=== PATIENT | female | born 1965 | race Two or more races ===

== ENCOUNTER 2023-05-28 11:42 | Inpatient (IN) | payer OTHER ==
[~2023-05-28] VITALS: Ht 154.9 cm; Wt 98.0 kg
[2023-05-28] MEDS ORDERED: PANTOPRAZOLE SO40 MG (12:09)
[2023-05-28] MEDS ORDERED: SYNTHROID50 MCG (12:09)
[2023-05-28] MEDS ORDERED: GABAPENTIN300 M2 (12:10)
[2023-05-28] MEDS ORDERED: AGRYLIN0.5 MG (12:10)
[2023-05-28] MEDS ORDERED: ST. JOSEPH ASPI81 M2 (12:10)
[2023-05-28] MEDS ORDERED: FAMOTIDINE40 MG (12:10)
[2023-05-28] MEDS ORDERED: FENOFIBRATE160 MG (12:10)
[2023-05-28] MEDS ORDERED: METOPROLOL SUCC25 MG (12:10)
[2023-05-28] MEDS ORDERED: ATORVASTATIN CA20 MG (12:10)
[2023-05-28 13:06] LABS: HEMATOCRIT 36.3 % (36.0-45.00); HEMOGLOBIN 12.3 g/dL (12.0-15.00); MEAN CELL VOLUME 111.9 fL (80.00-100.00); MEAN CORPUSCULAR HEMOGLOBIN 37.8 pg (27.00-32.0); MEAN CORPUSCULAR HGB CONC 33.7 g/dl (32.0-36.0); PLATELET COUNT 468 K/uL (150-450); RED BLOOD COUNT 3.25 M/uL (4.00-6.00); RED CELL DISTRIBUTION WIDTH 15.1 % (11.5-14.5)
[2023-05-28 13:20] LABS: INR 1.09; PARTIAL THROMBOPLASTIN TIME 33.1 SECONDS (22.0-34.0); PROTHROMBIN TIME 11.4 SECONDS (9.0-11.5)
[2023-05-28 13:24] LABS: ALBUMIN 4.3 gm/dL (3.4-5.0); BILIRUBIN TOTAL 0.41 mg/dL (0.3-1.2); CALCIUM 9.9 mg/dL (8.5-10.1); CREATININE SERUM 0.87 mg/dL (0.55-1.02); GFR 67.6; GLOBULINA 3.9 G/DL (2.4-3.5); POTASSIUM 4.43 mEq/L (3.5-5.1); TOTAL PROTEIN 8.2 gm/dL (6.4-8.2)
[2023-05-30] MEDS ORDERED: LIPITOR20 MG PO (18:03)
[2023-05-30] MEDS ORDERED: ELIQUIS5 MG PO (18:03)
[2023-05-30] MEDS ORDERED: FENOFIBRATE160 MG PO (18:04)
[2023-05-30] MEDS ORDERED: METOPROLOL SUCC25 MG PO (18:05)
[2023-05-30] MEDS ORDERED: GABAPENTIN300 M2 PO (18:06)
[2023-05-30] MEDS ORDERED: PANTOPRAZOLE SO40 MG PO (18:07)
[2023-05-30] MEDS ORDERED: FAMOTIDINE40 MG PO (18:07)
[2023-05-30] MEDS ORDERED: LEVOTHYROXINE50 MCG PO (18:08)
[2023-05-30] MEDS ORDERED: HYDROXYUREA500 MG PO (18:09)
== END 2023-05-30 19:02 | disposition home or self-care (01) | DRG 294 ==
LOC: MEDJ 11:42 → SEC-K 11:42 → MEDI 12:05 → MEDJ 13:54
PROVIDERS: Radiology Vascular & Interventional Radiology; ADMIT Internal Medicine Hematology & Oncology; ATTEND Internal Medicine Hematology & Oncology
PROC: BW30YZZ Magnetic Resonance Imaging (MRI) of Abdomen using Other Contrast (ICD-10-PCS; 2023-05-28)
PROC: B54DZZZ Ultrasonography of Bilateral Lower Extremity Veins (ICD-10-PCS; 2023-05-28)
PROC: 06H03DZ Insertion of Intraluminal Device into Inferior Vena Cava, Percutaneous Approach (ICD-10-PCS; principal; 2023-05-29 18:15)
DX: I82.220 Acute embolism and thrombosis of inferior vena cava (principal); D47.1 Chronic myeloproliferative disease; D47.3 Essential (hemorrhagic) thrombocythemia; I87.8 Other specified disorders of veins; Z20.822 Contact with and (suspected) exposure to COVID-19; E78.5 Hyperlipidemia, unspecified
CPT/HCPCS: 74185

== ENCOUNTER 2023-12-03 07:32 | Outpatient (CLI) | payer OTHER ==
[~2023-12-03 07:32] MED LIST: AGRYLIN0.5 MG; ATORVASTATIN CA20 MG; ELIQUIS5 MG PO; FAMOTIDINE40 MG; FAMOTIDINE40 MG PO; FENOFIBRATE160 MG; FENOFIBRATE160 MG PO; GABAPENTIN300 M2; GABAPENTIN300 M2 PO; HYDROXYUREA500 MG PO; LEVOTHYROXINE50 MCG PO; LIPITOR20 MG PO; METOPROLOL SUCC25 MG; METOPROLOL SUCC25 MG PO; PANTOPRAZOLE SO40 MG; PANTOPRAZOLE SO40 MG PO; ST. JOSEPH ASPI81 M2; SYNTHROID50 MCG
== END 2023-12-03 07:33 | disposition home or self-care (01) ==
LOC: NUCLEAR 07:32
PROVIDERS: ATTEND Internal Medicine
DX: I87.2 Venous insufficiency (chronic) (peripheral) (principal); I82.403 Acute embolism and thrombosis of unspecified deep veins of lower extremity, bilateral

== ENCOUNTER 2023-12-09 07:20 | Outpatient (CLI) | payer OTHER | END 2023-12-09 07:21 | disposition home or self-care (01) | LOC: NUCLEAR 07:20 | PROVIDERS: ATTEND Internal Medicine | DX: I20.9 Angina pectoris, unspecified (principal) | CPT/HCPCS: 78452; 93017; A9500; J0153 ==

== ENCOUNTER → 2024-10-18 07:13 | Outpatient (CLI) | payer OTHER | END | disposition home or self-care (01) | LOC: TOM 07:13 | PROVIDERS: ATTEND Internal Medicine Hematology & Oncology | DX: D47.1 Chronic myeloproliferative disease (principal); R10.31 Right lower quadrant pain | CPT/HCPCS: 74160; Q9965 ==